=== PATIENT | female | born 1935 | race Caucasian/White ===

== ENCOUNTER 2018-01-23 21:16 | Inpatient (IN) | payer OTHER, BC ==
[~2018-01-23] VITALS: Ht 152.4 cm; Wt 58.5 kg
[2018-01-23] VITALS: BP 163/96
--- NOTE | ~2018-01-23 | EKG ---
[address] [address] ELECTROCARDIOGRAM REPORT Name: LEON BRUCE Room #: 453-P ADM IN .R.#: [id number] Admission: 01/23/18 Attend Phys: Piter Jurado MD Discharge: Date of : 37 Report #: [id number] THIS REPORT FOR: //name// [facility] ED Test Date: 2018-01-23 Test Time: 23:37:31 Pat Name: LEON JANIS Department: Room: [facility] Gender: F [employer]: PANDA : 1935 Requested By: Jaida Scales Order Number: [id number] MD: Madhu Kemp Measurements Intervals [place] Rate: 93 P: 64 MS: 156 QRS: 73 QRSD: 96 T: 59 QT: 351 QTc: 437 Interpretive Statements Sinus rhythm Borderline T wave abnormalities Compared to ECG 09/07/2017 14:40:03 T-wave abnormality now present Electronically Signed On 01-26-2018 17:24:53 CDT by Madhu Kemp [email or web address] <ELECTRONICALLY SIGNED> By: Madhu Kemp MD 01/26/18 [id number] Maduh Kemp MD /EPI
--- NOTE | ~2018-01-23 | HC ---
[facility] [place] [address] [place] [address] CONSULTATION Name: JANISLEON Fanta Room #: 453-P ADM IN M.R.#: [id number] Admission: 01/23/18 Attend Phys: Piter Jurado MD Discharge: Date of : 37 Report #: [id number] THIS REPORT FOR: //name// CC: Piter Jurado MD DATE OF SERVICE: 01/24/2018 ORTHOPEDIC CONSULTATION REASON FOR CONSULTATION: Left hip fracture. HISTORY OF PRESENT ILLNESS: The patient is an 82-year-old female who is unable to give a history. She is alert and oriented to person only. The history is obtained from the patient's medical record. Apparently, she presented to the Emergency Department via EMS complaining of left hip pain and right shoulder pain. She apparently was walking and tripped on the charging cord and fell to the ground. Fall was heard and witnessed by the patient's daughter and granddaughter. PAST MEDICAL HISTORY: Significant for hypertension and dementia. MEDICATIONS: Include metformin, glimepiride, fluoxetine, aspirin, irbesartan and acetaminophen. ALLERGIES: No known drug allergies. REVIEW OF SYSTEMS: Unable to be obtained due to the patient's dementia. It was reviewed from the patient's H and P. SOCIAL HISTORY: Uses alcohol occasionally. There is no smoking history. Ambulatory status is unknown. PAST SURGICAL HISTORY: Back surgery, cataract surgery and tonsillectomy at age 7. LABORATORY DATA: On 01/23/2018, white blood cell count 14.5, hemoglobin 12.8, hematocrit 37.3 and platelet count 424,000. Chemistry is grossly normal. PHYSICAL EXAMINATION: GENERAL: She is alert and oriented to person only. VITAL SIGNS: Most recent vital signs show a temperature of 36.7, heart rate is 98, respiration rate 16, blood pressure 127/76 and pulse oximetry 91% on room air. NEUROLOGIC: The examination was significantly limited due to the patient's mental status. She was not significantly cooperative during the examination and [address] [address] CONSULTATION Name: JANISLEON Room #: 453-[facility] IN ..#: [id number] Admission: 01/23/18 Attend Phys: Piter Jurado MD Discharge: Date of : 37 Report #: [id number] did not answer questions. EXTREMITIES: Inspection of her bilateral upper extremities, the skin is clean, dry and intact. She has no significant wounds. She has no tenderness to palpation throughout the bilateral sternum or clavicles, bilateral shoulders, arms, forearms, elbows, wrists and hands. There is no pain with gentle range of motion. On bilateral lower extremity exam, she wiggles her toes. Sensory exam is unable to be obtained. upper extremity as well. She has brisk capillary refill in her lower extremities. She has some pain with left hip range of motion. No pain with right hip range of motion. No pain with bilateral knee, ankle or foot motion. There is no tenderness to palpation throughout the patient's bilateral thighs, knees, ankles or feet. There is no tenderness to her lumbar or thoracic spine or pelvis. RADIOGRAPHIC DATA: AP pelvis and AP and lateral of the left hip show a displaced subcapital femoral neck fracture. IMPRESSION AND PLAN: Left displaced subcapital femoral neck fracture in an 82-year-old female, with significant dementia, who otherwise does not appear to have any significant medical problems. We will await medical clearance and plan for hip hemiarthroplasty as the schedule allows. Once the plan is more in place, I will contact her emergency contact. Thank you very much for allowing me to participate in the care of this patient. By: [id number] Emily Tripathi MD /nt
--- NOTE | ~2018-01-23 | O ---
[facility] [place] [address] OPERATIVE REPORT Name: JANISLEON Fanta Room #: 453-P ADM IN M.R.#: [id number] Admission: 01/23/18 Attend Phys: Piter Jurado MD Discharge: Date of : 37 Report #: [id number] THIS REPORT FOR: //name// CC: Piter Jurado DATE OF SERVICE: 01/25/2018 SERVICE: Orthopedics. FACILITY: [facility]. SURGEON: Keenan Robledo MD SURGICAL SERVICES MANAGER: None. PREOPERATIVE DIAGNOSIS: Displaced left femoral neck fracture. POSTOPERATIVE DIAGNOSIS: Displaced left femoral neck fracture. PROCEDURE: Left hip hemiarthroplasty. COMPLICATIONS: None. DRAINS: None. SPECIMENS: None. ANESTHESIA: General. ESTIMATED BLOOD LOSS: 250 mL. FINDINGS: [employer] size 10 cemented stem with 44 mm head with 0 liner. HISTORY: The patient is an 82-year-old female with baseline dementia, sustained a same level fall resulting in displaced left femoral neck fracture. She was admitted and seen preoperatively for medical optimization. She was indicated for surgical treatment. Risks, benefits, alternatives and indications for surgery were discussed with her family preoperatively and they gave full informed consent and answered questions. Risks include but not limited to pain, bleeding, infection, injury to nerves or blood vessels, persistent pain despite surgical intervention, instability, failure of the implant as well as complications related to anesthesia such as stroke, heart attack, pulmonary complications, thromboembolic disease and . Despite these risks, they agreed and wished to proceed. [facility] [place] [address] OPERATIVE REPORT Name: JANISLEON Room #: 453-P [facility] IN .R.#: [id number] Admission: 01/23/18 Attend Phys: Piter Jurado MD Discharge: Date of : 37 Report #: [id number] PROCEDURE IN DETAIL: After the left lower extremity was correctly identified in preoperative holding area as the operative extremity, the patient was taken to the operating room where general anesthesia was induced without complication. She was placed on the operating table, turned into lateral decubitus position, left side up, right side down and was padded appropriately. Prophylactic antibiotics were administered at appropriate time. Tranexamic acid was used as well at the appropriate time. Left leg was prepped and draped in standard sterile fashion. Time-out procedure was performed. Standard posterior approach was made to the hip. Dissection was taken down through the fascia. Retraction was placed. The trochanteric bursa was excised and then the piriformis was identified intact. There was a rent in the capsule and there was also some tearing of the gluteus musculature that had occurred as a result of the injury. The capsule was preserved as much as possible and was tagged and then reflected. The femoral neck fracture was relatively proximal, so I made a new neck cut and then removed the femoral head, which was sized to 44. Acetabulum was cleaned and irrigated and the femur was prepared in a typical fashion working up to a size 12 reamer and a size 12 broach. At this point, a 44 mm head with a 0 liner and a standard offset neck was selected and the hip was reduced and was found to be stable in extension external rotation, the position of sleep and 90 internal rotation position. The femoral head was seated well with good suction and the leg lengths appeared symmetric. I then brought in a cross-table lateral x-ray and took an x-ray of the implant and it appeared to be well seated. It was not in varus and it was appropriate length. Therefore, we selected this as a final implant, prepared the femur and then cemented the stem into place. The trial head and liner were then once again placed and then the hip was reduced and we again checked for stability as well as length. I was happy with this, so we selected a final head and sleeve in place, impacted them into position after irrigating thoroughly and then reduced the hip. One gram of vancomycin powder was split deep to the capsule as well as superficial to the capsule and deep to the fascial layer. The capsule was closed with a total of three #2 FiberWire sutures including a repair suture of the piriformis with a modified Jessica stitch. The remaining vancomycin powder was then placed superficial to the capsule and the IT band was closed with 0 Vicryl suture in a [id number] fashion. The fat layer was closed with 2-0 Vicryl and the skin was closed with 2-0 Vicryl followed by skin karyn. Sterile dressing was applied followed by an abduction pillow sling. The patient was awakened from anesthesia and taken to recovery room in stable condition. There were no complications. All counts were recorded as correct. <ELECTRONICALLY SIGNED> By: Keenan Robledo MD 01/26/18 [id number] Keenan Robledo MD /nt
[~2018-01-23 21:16] MED LIST: APAP650 PO; AVAPRO 150 MG150 M1 PO; CALCIUM CITRAT1 EA19 PO; FIBER LAXATIVE500 MG PO; GLUCOPHAGE1000 MG PO; LITE COAT ASPI325 MG PO; NAMENDA XR28 MG PO; ONGLYZA5 MG PO; RAZADYNE 4 MG TA4 M1 PO; VOLTAREN GEL 1100 G1 TOP
[2018-01-23 21:28] VITALS: BP 162/103
[2018-01-23] MEDS ORDERED: AMARYL2 MG PO (21:34)
[2018-01-23] MEDS ORDERED: PROZAC10 MG PO (21:34)
[2018-01-23 22:40] LABS: HEMATOCRIT 37.3 % (37.0-47.0); HEMOGLOBIN 12.8 gm/dL (12.0-15.0); MCH 30.4 pg (26.0-34.0); MCHC 34.2 g/dL (28.0-37.0); MCV 88.7 fL (80.0-100.0); RBC 4.21 mil/uL (4.20-5.00); WBC 14.5 thou/uL (4.0-11.0)
[2018-01-23 22:42] LABS: CALCIUM 9.7 mg/dL (8.5-10.1); CREATININE 0.9 mg/dL (0.6-1.0); POTASSIUM 4.2 mmol/L (3.5-5.1)
[2018-01-23 23:23] VITALS: BP 148/78
[2018-01-23 23:25] LABS: URINE BILIRUBIN NEGATIVE (Negative); URINE BLOOD TRACE (Negative); URINE CLARITY CLEAR; URINE COLOR YELLOW; URINE GLUCOSE-RANDOM* 3+ (Negative); URINE KETONES TRACE (Negative); URINE LEUKOCYTES-REFLEX NEGATIVE (Negative); URINE NITRITE-REFLEX NEGATIVE (Negative); URINE PROTEIN (DIPSTICK) NEGATIVE (Negative); URINE UROBILINOGEN 0.2 E.U./dl (0.2-1.0)
[2018-01-23 23:49] VITALS: BP 150/74
[2018-01-24 04:54] VITALS: BP 133/75
[2018-01-24 07:50] VITALS: BP 127/76
[2018-01-24 15:35] VITALS: BP 134/70
[2018-01-24 19:50] VITALS: BP 130/74
[2018-01-25] VITALS (13 sets, daily range): BP systolic 11–137; BP diastolic 54–74
[2018-01-26 00:07] VITALS: BP 108/66
[2018-01-26 03:40] VITALS: BP 123/65
[2018-01-26 04:47] LABS: HEMATOCRIT 25.1 % (37.0-47.0); MCH 30.4 pg (26.0-34.0); MCHC 33.9 g/dL (28.0-37.0); MCV 89.7 fL (80.0-100.0); RBC 2.79 mil/uL (4.20-5.00); RDW 13.6 % (10.5-14.5); WBC 16.6 thou/uL (4.0-11.0)
[2018-01-26 04:52] LABS: CALCIUM 8.2 mg/dL (8.5-10.1); CREATININE 0.8 mg/dL (0.6-1.0); POTASSIUM 3.9 mmol/L (3.5-5.1)
[2018-01-26 05:06] LABS: HEMOGLOBIN 8.5 gm/dL (12.0-15.0)
[2018-01-26 16:23] VITALS: BP 105/54
[2018-01-26 19:41] VITALS: BP 117/76
[2018-01-27 04:20] VITALS: BP 131/57
[2018-01-27 05:38] VITALS: BP 99/47
[2018-01-27 05:40] LABS: HEMATOCRIT 22.8 % (37.0-47.0); HEMOGLOBIN 7.9 gm/dL (12.0-15.0); MCH 30.5 pg (26.0-34.0); MCHC 34.5 g/dL (28.0-37.0); MCV 88.3 fL (80.0-100.0); RBC 2.58 mil/uL (4.20-5.00); RDW 13.5 % (10.5-14.5); WBC 11.3 thou/uL (4.0-11.0)
[2018-01-27 08:00] VITALS: BP 117/57
[2018-01-27] MEDS ORDERED: HYDROCODON-ACE1 EAC7 PO (08:03)
[2018-01-27] MEDS ORDERED: XARELTO10 MG PO (08:03)
== END 2018-01-27 13:07 | DRG 469 ==
LOC: ER 21:16 → 4W 22:53 → EROBS 22:53 → 4W 01-24
PROVIDERS: Emergency Medicine; Orthopaedic Surgery Sports Medicine
PROC: 0SRS0JZ Replacement of Left Hip Joint, Femoral Surface with Synthetic Substitute, Open Approach (ICD-10-PCS; principal; 2018-01-25)
DX: S72.012A Unspecified intracapsular fracture of left femur, initial encounter for closed fracture (principal); G93.40 Encephalopathy, unspecified; I10 Essential (primary) hypertension; E11.9 Type 2 diabetes mellitus without complications; F03.90 Unspecified dementia, unspecified severity, without behavioral disturbance, psychotic disturbance, mood disturbance, and anxiety; W01.0XXA Fall on same level from slipping, tripping and stumbling without subsequent striking against object, initial encounter; D64.9 Anemia, unspecified; Z66 Do not resuscitate; Z98.49 Cataract extraction status, unspecified eye; Z79.899 Other long term (current) drug therapy; Z79.82 Long term (current) use of aspirin; Z90.89 Acquired absence of other organs; Y93.89 Activity, other specified; Y92.89 Other specified places as the place of occurrence of the external cause; Y99.8 Other external cause status
CPT/HCPCS: 10040; 50101; 50382; 50414; 50939; 51057; 51130; 51225; 51226; 51412; 51771; 53000; 53078; 56524; 56528; 56530; 57095; 57103; 57164; 62110; 62900; 70005